=== PATIENT | female | born 1955 | race Caucasian/White ===

== ENCOUNTER 2018-12-02 10:10 | Emergency (ER) | payer MEDICAID ==
[~2018-12-02] VITALS: Ht 165.1 cm; Wt 102.1 kg
[2018-12-02 12:01] LABS: BASO % 0.3 % (0.0-1.0); EOS % 0.1 % (1.0-4.0); HEMATOCRIT 41.7 % (37.0-47.0); LYMPH # 1.4 10*3/uL (1.3-4.4); MEAN CELL VOLUME 90.7 fl (81.0-99.0); MEAN CORPUSCULAR HGB 30.4 pg (27.0-31.0); MEAN CORPUSCULAR HGB CONC 33.6 g/dl (33.0-37.0); MEAN PLATELET VOLUME 10.2 fl (9.6-12.3); MONO # 0.3 10*3/uL (0.1-1.0); MONO % 3.2 % (3.0-9.0); NEUT # 7.7 10*3/uL (2.3-7.9); NEUT % 81.2 % (47.0-73.0); PLATELET COUNT AUTOMATED 337 10*3/uL (130-400); RED CELL DISTRI WIDTH 12.3 % (0-14.5); WHITE BLOOD COUNT 9.4 10*3/uL (4.8-10.8)
[2018-12-02 12:10] LABS: ACT PARTIAL THROMBO TIME 25.2 SECONDS (20.8-31.5); INTERNATIONAL NORM RATIO 0.9 (2.0-3.5)
[2018-12-02 12:18] LABS: ALBUMIN 3.6 gm/dl (3.1-4.5); ALKALINE PHOSPHATASE 113 U/L (45-117); BUN 15 mg/dl (7-24); CHLORIDE 104 mmol/L (98-107); CREATININE 0.64 mg/dL (0.55-1.02); LIPASE 83 U/L (73-393); POTASSIUM 4.1 mmol/L (3.5-5.1); SGOT/AST 23 IU/L (3-35); SGPT/ALT 31 U/L (12-78); SODIUM 136 mmol/L (136-145); TOTAL PROTEIN 7.8 gm/dL (6.4-8.2)
[2018-12-02 12:36] LABS: BILIRUBIN NEGATIVE (NEGATIVE); BLOOD NEGATIVE (NEGATIVE); CLARITY SL CLOUDY (CLEAR); COLOR YELLOW (YELLOW); GLUCOSE NEGATIVE (NEGATIVE); KETONE NEGATIVE (NEGATIVE); LEUKO ESTERASE 1+ (NEGATIVE); NITRITE NEGATIVE (NEGATIVE); UROBILINOGEN 0.2 E.U./dl (0.2-1.0)
[2018-12-02 12:51] LABS: BACTERIA 1+; EPITHELIAL CELLS 15-20
[2018-12-02 12:52] LABS: WBC 16-20 wbc/hpf (0-5)
== END 2018-12-02 13:44 | disposition home or self-care (01) ==
LOC: ED 10:10
PROVIDERS: Physician Assistant
DX: R10.11 Right upper quadrant pain (principal); R11.0 Nausea; Z90.710 Acquired absence of both cervix and uterus; Z90.722 Acquired absence of ovaries, bilateral; Z91.013 Allergy to seafood; Z88.6 Allergy status to analgesic agent

== ENCOUNTER → 2020-02-16 | Outpatient (CLI) | payer OTHER | END | disposition home or self-care (01) | LOC: RAD 12:48 | DX: M47.897 Other spondylosis, lumbosacral region (principal); M43.17 Spondylolisthesis, lumbosacral region; M85.88 Other specified disorders of bone density and structure, other site ==

== ENCOUNTER → 2020-06-09 | Outpatient (CLI) | payer OTHER | END | disposition home or self-care (01) | LOC: MAMMO 06-06 08:00 | PROVIDERS: ATTEND Preventive Medicine Occupational Medicine | DX: Z12.31 Encounter for screening mammogram for malignant neoplasm of breast (principal) ==

== ENCOUNTER → 2021-11-07 | Outpatient (CLI) | payer OTHER | END | disposition home or self-care (01) | LOC: RAD 13:11 | PROVIDERS: ATTEND Nurse Practitioner Family | DX: Z13.820 Encounter for screening for osteoporosis (principal); M81.0 Age-related osteoporosis without current pathological fracture ==

== ENCOUNTER → 2022-08-29 | Outpatient (CLI) | payer MEDICARE | END | disposition home or self-care (01) | LOC: MAMMO 13:47 | PROVIDERS: ATTEND Nurse Practitioner | DX: Z12.31 Encounter for screening mammogram for malignant neoplasm of breast (principal) ==

== ENCOUNTER → 2022-10-29 | Outpatient (CLI) | payer OTHER | END | disposition home or self-care (01) | LOC: RAD 09:03 | PROVIDERS: ATTEND Nurse Practitioner Family | DX: J20.9 Acute bronchitis, unspecified (principal) ==

== ENCOUNTER → 2022-12-10 | Outpatient (CLI) | payer OTHER ==
[~2022-12-10] MED LIST: AMOX-CLAV 875-1 EACH PO; HYDR12.5C PO; HYDROCODONE-AC1 EAC1 PO; VENLAFAXINE37.5 M1 PO; XANAX0.25 MG PO
[2022-12-10 12:24] LABS: ALKALINE PHOSPHATASE 126 U/L (46-116); BUN 12 mg/dl (9-23); CHLORIDE 103 mmol/L (98-107); POTASSIUM 3.6 mmol/L (3.4-5.1); SGPT/ALT 31 U/L (10-49); TOTAL PROTEIN 7.1 gm/dL (6.0-8.0)
== END | disposition home or self-care (01) ==
LOC: LAB 10:47
PROVIDERS: ATTEND Nurse Practitioner
DX: R06.02 Shortness of breath (principal)